=== PATIENT | male | born 1960 | race Caucasian/White ===

== ENCOUNTER → 2024-09-04 06:41 | Outpatient (REF) | payer MEDICARE, BC, SELFPAY | LOC: RAD 06:41 | PROVIDERS: ATTENDING PHYSICIAN Family Medicine | DX: Z13.6 Encounter for screening for cardiovascular disorders (principal) | CPT/HCPCS: 76770 ==

== ENCOUNTER → 2025-01-03 07:16 | Outpatient (REF) | payer MEDICARE, SELFPAY | LOC: RAD 07:16 | PROVIDERS: ATTENDING PHYSICIAN Family Medicine | DX: R10.0 Acute abdomen (principal) | CPT/HCPCS: 74177; Q9967 ==